=== PATIENT | male | born 1995 | race Caucasian/White ===

== ENCOUNTER 2017-03-09 18:55 | Emergency (ER) | payer BC ==
[~2017-03-09] VITALS: Ht 185.4 cm; Wt 72.7 kg
[2017-03-09 18:56] VITALS: TEMP 99.2
[2017-03-09 20:15] VITALS: BP 120/76; PULSE 70
== END 2017-03-09 20:16 | disposition home or self-care (01) ==
LOC: COL.ER 18:55
DX: G43.909 Migraine, unspecified, not intractable, without status migrainosus (principal)
CPT/HCPCS: J1200; J1885; J2765; J7030